=== PATIENT | female | born 1950 | race Caucasian/White ===

== ENCOUNTER 2024-12-02 12:05 | Emergency (ER) | payer MEDICARE, SELFPAY ==
[2024-12-02] VITALS (14 sets, daily range): BP systolic 161–197; BP diastolic 72–118; BMI 29.1
[2024-12-02] MEDS: MOTRIN 400 MG PO (13:06)
[2024-12-02] MEDS: ADACEL 0.5 ML IM (13:07)
--- NOTE | 2024-12-02 13:15 | ED.GENMED ---
History of Present Illness
General
Chief Complaint: Fall
Source: patient and ambulance crew
Exam Limitations: none
Time Seen by Provider: 12/02/24 12:37
Nursing documentation reviewed up to this point in time: agreed with
History of Present Illness
History of Present Illness:
74-year-old right-handed female with no significant chronic medical issues presents to the ER for evaluation of left wrist injury. Patient was walking in the park and tripped on a lip in the cement. She fell forward onto her outstretched left hand
and felt immediate pain and noted deformity to the left wrist. EMS was called to bring her to the hospital. Fortunately she did not hit her head or sustain any other injuries. She denies any headache, neck pain, back pain, rib pain. Denies any
pain in the right hand or wrist or in the lower extremities. She is not on any blood thinners. She did sustain some abrasions to the wrist, unsure of her last tetanus shot.
Past History
Past History
ED Past Medical History: None
ED Past Surgical History: None
Social History
Tobacco: Non-smoker
Alcohol: None
Drug: None
Living: with family
Review of Systems
Review of Systems
All Other Systems: ROS reviewed and negative except as documented in HPI and ROS
Cardiac: Denies chest pain
ABD/GI: Denies abdominal pain or nausea
: Denies flank pain
Musculoskeletal: Denies neck pain or back pain
Skin: Reports other (Abrasion)
Neurological: Denies headache
Phy Exam
Physical Exam
Physical Exam:
General: Awake, alert, oriented x3; no acute distress
Head: Normocephalic, atraumatic
Eyes: Conjunctiva normal, pupils equal round reactive to light bilaterally
Throat: Airway intact, handling secretions
Neck: Trachea midline, no cervical spine tenderness, full range of motion without pain
Lungs: Breathing comfortably no distress
Heart: Regular rate; no chest wall tenderness
Abd: Soft, non distended, nontender
Neuro: No gross deficits; motor and sensory appears to be intact in the left hand
Skin: Minor abrasions to the left wrist on the dorsum but no large lacerations
Extremities: Patient has deformity to left wrist and diffuse tenderness of the distal forearm/wrist; no tenderness to the left elbow or shoulder, no tenderness of the right upper extremity, no tenderness in the lower extremities and moves them
comfortably without pain; she is a strong pulse in all extremities specifically a strong left radial pulse
Scores
Heart Failure Risk
Heart Failure Risk Score: Not Applicable
Heart Score for Chest Pain Patients
STEMI patient?: Not applicable
Withdrawal Assessment of Alcohol
Withdrawal Assessment Completed?: Not applicable
Course
Orders/Labs/Results
Orders:
Orders
12/02/24 12:39
CR Wrist - Left Min 3 Views Urgent
Comment:
Reason For Exam: wrist injury sp fall
12/02/24 12:48
Ibuprofen [Motrin] 400 mg PO NOW STA
Tetanus/Diphth/Acelpertussis [Adacel] 0.5 ml IM .ONCE ONE
12/02/24 13:10
Propofol [Diprivan] 20 ml .ROUTE .STK-MED
CR Wrist - Left Min 2 Views Urgent
Comment:
Reason For Exam: post reduction
12/02/24 13:15
Ondansetron Injectable [Zofran] 4 mg IV NOW STA
Vital Signs
Initial and Last Documented VS:
Initial Vital Signs
Temp Pulse Resp BP Pulse Ox
36.8 C 60 20 167/72 99
12/02/24 12:09 12/02/24 12:09 12/02/24 12:09 12/02/24 12:09 12/02/24 12:09
Last Documented Vital Signs
Temp Pulse Resp BP Pulse Ox
36.8 C 60 13 177/75 98
12/02/24 13:29 12/02/24 13:56 12/02/24 13:56 12/02/24 13:56 12/02/24 13:55
Procedures
Moderate Sedation
ASA Risk Score: Class I
Chart and allergies reviewed: Yes
Consent for anesthesia obtained: Yes
Time out completed (validating right patient & procedure): Yes
Moderate Sedation Start Time(when first medication is given): 13:29
History of difficult intubation: No
Airway free of obstruction: Yes
Patient has a gag reflex: Yes
Patient is able to open mouth: Yes
Patient has no dentures: Yes
Patient has no loose teeth: Yes
Medication administered by Provider during Moderate Sedation: IV Propofol (mg)
Total dose administered: 80
Time drug administered: 13:29
Moderate Sedation Procedure End Time: 13:40
Splinting/Sling Placement
Left Arm:
Procedure completed by: Yogi Rendon MD
Pre-splint extermity exam: neurovascular intact
Type of splint: sugar-tong
Splint material: fiberglass
Splint checked by provider?: Yes
Type of sling: sling fitted
Normal distal neurovascular exam?: Yes
Joint/Fracture Reduction
Left Wrist:
Indication for procedure:: left wrist fracture
Procedure completed by: Yogi Rendon MD
Consent form signed: Yes
Anesthesia/sedation: Moderate sedation
Injury was: closed
Further treatement: no treatment needed
Post reduction exam: stable
Capillary Refill: normal
Normal distal neurovascular exam?: Yes
MDM/Problems Addressed
Differential Diagnosis Includes:
Wrist fracture, wrist dislocation
MDM/Problems Addressed:
74-year-old female presents after a fall onto outstretched left wrist with deformity left wrist. She is hypertensive otherwise normal vitals. Physical exam as above. Neurovascular exam is intact. X-ray of the wrist shows distal radius fracture
with significant displacement. Patient will need sedation and reduction. She did have abrasions to the wrist but they are very superficial on cleaning and inspection�do not suspect open fracture.
Fracture reduced under sedation with some difficulty�repeat x-ray shows some continued fracture displacement although improved alignment compared to initial. Discussed with orthopedics�based on fracture pattern unlikely to have good anatomic
alignment without surgery. They will see patient in the office tomorrow. Patient is very happy with this plan. Will observe after sedation and plan for discharge with outpatient orthopedic follow-up tomorrow.
*Radiology
Radiology exam reviewed: preliminary read by ED provider
*Pulse Oximetry
SaO2: 100
Oxygen Mode of Delivery: Room air
Patient hypoxic: no (100%)
*Critical Care Note
Total Time (30-74mins, 75-104mins- exclusive of procedures): Not Applicable
Data Reviewed
Source: patient and records
Patient Management
Discussion with other providers: Rolled Seat Trimmer (Discussed with orthopedics)
ED Attending Note
-
Portions of this chart may have been created with voice recognition software.� Occasional wrong word or��sound alike� substitutions may have occurred due to the inherent limitations of voice recognition software.
Discharge Plan
Departure
Patient Disposition: Home (Routine Discharge)
Date of Disposition: 12/02/24
Time of Disposition: 14:11
Patient with high blood pressure during this ER visit?: Yes
Discharge Problem:
Wrist fracture, left
Instructions: Wrist fracture
Prescriptions:
No Action
gentamicin [Gentak] 0.3 % drops
1 drp LEFT EYE Q6
acetaminophen [Tylenol Extra Strength] 500 MG tablet
1,000 mg PO Q6HPRN PRN (Reason: mild pain) Qty: 1 0RF
ibuprofen 200 MG tablet
400 - 600 mg PO Q6HPRN PRN (Reason: moderate pain) Qty: 1 0RF
Referrals:
Ramon Bella MD [Active, Orthopedics] - Tomorrow
Activity Restrictions/Additional Instructions:
You should ice your wrist over top of the splint 3-5 times a day for about 15 minutes at a time for the next few days. You should take Tylenol and ibuprofen to help control the pain. You should follow-up tomorrow in the office with the orthopedic
doctor as we discussed in the emergency room.
Thank you for visiting the Emergency Department at [facility].
1. Please schedule a follow up appointment as directed. Call first thing tomorrow morning to make an appointment.
2. If indicated, please take your medications as instructed and indicated on discharge paperwork.
3. If any of your symptoms do not improve, or persist, or become more severe within 6-12 hours, please return to the emergency department for further care.
4. Please return to the emergency department if you develop a headache, neck pain/stiffness, fever greater than 100.4F, chest pain, shortness of breath, persistent nausea, vomiting, slurred speech, difficulty walking, numbness/tingling, weakness,
signs of infection or any other symptoms that are worrisome to you.
Please call [phone] if you have any questions.
Interventions
Interventions:
*Risk Screen - Suicide Last Done: 12/02/24 12:23
*General Assessment Last Done: 12/02/24 12:16
*Neglect/Abuse Screening Last Done: 12/02/24 12:17
*ED- Fall Risk Assessment Last Done: 12/02/24 12:16
*ED COVID-19 Vaccine History Last Done: 12/02/24 12:15
ED-Musculoskeletal Assessment Last Done: 12/02/24 12:19
ED- Neurological Assessment Last Done: 12/02/24 12:19
ED-Skin Assessment Last Done: 12/02/24 12:20
Discharge Date and Time
Print Language: GEORGIAN
[2024-12-02] MEDS: ZOFRAN 4 MG IV (13:24)
== END 2024-12-02 15:18 | disposition home or self-care (01) ==
LOC: EMR 12:05
PROVIDERS: EMERGENCY PHYSICIAN Emergency Medicine; FAMILY PHYSICIAN Nurse Practitioner Family
DX: S52.592A Other fractures of lower end of left radius, initial encounter for closed fracture (principal); S52.612A Displaced fracture of left ulna styloid process, initial encounter for closed fracture; W01.0XXA Fall on same level from slipping, tripping and stumbling without subsequent striking against object, initial encounter; Y93.01 Activity, walking, marching and hiking
CPT/HCPCS: 99283; 25605; 99152; 96374; 96372; 73100; 73110; 90715